=== PATIENT | female | born 1985 | race African-American/Black ===

== ENCOUNTER 2019-10-19 18:39 | Emergency (ER) | payer OTHER ==
[~2019-10-19] VITALS: Ht 172.7 cm; Wt 56.7 kg
[2019-10-19] MEDS ORDERED: IBUPROFEN 800800 M1 PO (19:32)
[2019-10-19] MEDS ORDERED: NORFLEX100 MG PO (19:32)
[2019-10-19 19:42] VITALS: BP 101/66
== END 2019-10-19 19:55 | disposition home or self-care (01) ==
LOC: ER 18:39
DX: S00.83XA Contusion of other part of head, initial encounter (principal); J45.909 Unspecified asthma, uncomplicated; V49.88XA Car occupant (driver) (passenger) injured in other specified transport accidents, initial encounter; Y93.89 Activity, other specified; Y92.413 State road as the place of occurrence of the external cause; Y99.9 Unspecified external cause status